=== PATIENT | female | born 1975 | race Two or more races ===

== ENCOUNTER 2021-02-16 00:53 | Emergency (ER) | payer SELFPAY ==
[~2021-02-16] VITALS: Ht 154.9 cm; Wt 72.6 kg
--- NOTE | 2021-02-16 01:00 | NUR ---
PT BIBRA C/O MARIJUANA OVERDOSE. PT AAOX4 BREATHING EVENLY AND UNLABORED. PT STATES " I SMOKED FOR THE FIRST TIME AND NOW I FEEL NAUSEOUS AND DIZZY" PT SKIN WARM, DRY, AND INTACT. PT ATTACHED TO MONITOR AND POX. PT GIVEN BLANKET AND CALL LIGHT WITHIN REACH. MD AT BEDSIDE.
[2021-02-16] MEDS ORDERED: ONDANSETRON HCL/PF 4 MG/2 ML VIAL ONE (01:11)
--- NOTE | 2021-02-16 01:21 | NUR ---
LAB AT BEDSIDE
[2021-02-16] MEDS ORDERED: IV NS 0.9% 1,000 ML BAG IV ONE (01:30)
[2021-02-16] MEDS ORDERED: ONDANSETRON HCL/PF 4 MG/2 ML VIAL IVP ONE (01:30)
[2021-02-16 01:32] LABS: BASOPHILS # (AUTO) 0.4 /CMM (0.0-0.2); EOSINOPHILS % (AUTO) 1.3 % (0.0-6.0); HEMATOCRIT 39 % (33-45); LYMPHOCYTES # (AUTO) 1.3 /CMM (0.8-4.8); MEAN CORPUSCULAR HGB CONC 33 g/dl (31.0-36.0); MEAN CORPUSCULAR VOLUME 84 fL (82-100); MONOCYTES # (AUTO) 0.5 /CMM (0.1-1.30); MONOCYTES % (AUTO) 5.5 % (2.0-12.0); NEUTROPHILS % (AUTO) 75.2 % (43.0-81.0); PLATELET COUNT (AUTO) 213 /CMM (150-450); RED BLOOD CELL COUNT(AUTO) 4.71 MIL/uL (4.0-5.2); WHITE BLOOD COUNT (AUTO) 9.3 K/uL (4.3-11.0)
[2021-02-16 02:07] LABS: ALANINE AMINOTRANSFERASE 28 U/L (12-78); ALBUMIN 3.5 g/dL (3.4-5.0); ALKALINE PHOSPHATASE 47 U/L (46-116); ASPARTATE AMINOTRANSFERASE 19 U/L (15-37); BILIRUBIN,DIRECT 0.1 mg/dL (0.0-0.2); BILIRUBIN,TOTAL 0.3 mg/dL (0.2-1.0); CALCIUM, SERUM 8.1 mg/dL (8.5-10.1); CARBON DIOXIDE 22 mmol/L (21-32); CHLORIDE 103 mmol/L (98-107); CREATININE 0.8 mg/dL (0.6-1.3); GLUCOSE 164 mg/dL (74-106); SODIUM SERUM 136 mmol/L (136-145); TOTAL PROTEIN, SERUM 7.6 g/dL (6.4-8.2); UREA NITROGEN, BLOOD 21 mg/dL (7-18)
[2021-02-16 02:29] LABS: POTASSIUM 2.8 mmol/L (3.5-5.1)
[2021-02-16 02:30] LABS: ALCOHOL, BLOOD < 3 mg/dL (0-0)
[2021-02-16] MEDS ORDERED: LORAZEPAM INJ 2 MG/ML VIAL IV ONE (02:30)
[2021-02-16] MEDS ORDERED: LORAZEPAM INJ 2 MG/ML VIAL ONE (02:41)
--- NOTE | 2021-02-16 02:57 | NUR ---
URINE SENT TO LAB
[2021-02-16] MEDS ORDERED: ONDA4TAB5 PO (03:48)
--- NOTE | 2021-02-16 05:21 | NUR ---
Patient discharged to home in stable condition. Written and verbal after care instructions given. Patient verbalizes understanding of instruction. IV removed. Catheter intact and site benign. Pressure and 4x4 applied to site. No bleeding noted. Pt ambulatory with a steady gait
[2021-02-16 05:32] VITALS: BP 135/88
== END 2021-02-16 05:21 | disposition home or self-care (01) ==
LOC: ER 00:57
DX: R11.0 Nausea (principal); F12.929 Cannabis use, unspecified with intoxication, unspecified; R42 Dizziness and giddiness; I10 Essential (primary) hypertension
CPT/HCPCS: 36415; 80048; 80076; 80307; 80320; 84702; 85025; 93005; 96361; 96374; 96375; 99285; J2060; J2405; J7030; G0480